=== PATIENT | male | born 1990 | race Caucasian/White ===

== ENCOUNTER 2019-02-08 02:59 | Emergency (ER) | payer OTHER ==
--- NOTE | 2019-02-08 03:19 | Emergency Department Report ---
ED General Adult HPI - General Stated complaint: MEDICAL CLEARANCE Time Seen by Provider: 02/08/19 03:17 - History of Present Illness Initial comments: 28-year-old male with no past medical history presents after being referred from [facility] with the note the patient is ruled out for bacterial meningitis. Patient had told the staff at [facility] that he was recently treated for viral meningitis and didn't bacteria [facility] 3 days ago. Patient states he also was intoxicated at the time of the treatment and does not know the full workup that he received. Patient complains of generalized pain. Patient complains of headache but denies neck stiffness. Patient complains of body aches. Patient denies recent fever. Patient states that he was given a prescription to feel at [facility] but was unable to fill this prescription. - Related Data Allergies Allergy/AdvReac Type Severity Reaction Status Date / Time amoxicillin [From Augmentin] Allergy Unknown Verified 02/08/19 03:19 clavulanic acid Allergy Unknown Verified 02/08/19 03:19 [From Augmentin] ED Review of Systems ROS: Stated complaint: MEDICAL CLEARANCE Other details as noted in HPI Constitutional: denies: chills, fever Eyes: denies: eye pain, eye discharge, vision change ENT: denies: ear pain, throat pain Respiratory: cough Cardiovascular: denies: chest pain, palpitations Endocrine: no symptoms reported Gastrointestinal: denies: abdominal pain, nausea, diarrhea Genitourinary: denies: urgency, dysuria Musculoskeletal: denies: back pain, joint swelling, arthralgia Skin: denies: rash, lesions Neurological: headache, weakness Psychiatric: denies: anxiety, depression Hematological/Lymphatic: denies: easy bleeding, easy bruising ED Physical Exam - General General appearance: alert, in no apparent distress - Head Head exam: Present: atraumatic, normocephalic - Eye Eye exam: Present: normal appearance - ENT ENT exam: Present: mucous membranes moist - Neck Neck exam: Present: normal inspection, full ROM. Absent: meningismus - Respiratory Respiratory exam: Present: normal lung sounds bilaterally. Absent: respiratory distress - Cardiovascular Cardiovascular Exam: Present: regular rate, normal rhythm. Absent: systolic mu rmur, diastolic murmur, rubs, gallop - GI/Abdominal GI/Abdominal exam: Present: soft, normal bowel sounds - Rectal Rectal exam: Present: deferred - Extremities Exam Extremities exam: Present: normal inspection - Back Exam Back exam: Present: normal inspection - Neurological Exam Neurological exam: Present: alert, oriented X3 - Psychiatric Psychiatric exam: Present: normal affect, normal mood - Skin Skin exam: Present: warm, dry, intact, normal color. Absent: rash ED Course Vital Signs 02/08/19 02/08/19 03:19 04:00 Temperature 99.9 F H 99.9 F H Pulse Rate 88 Respiratory 18 Rate Blood Pressure 135/78 [Right] O2 Sat by Pulse 100 Oximetry ED Medical Decision Making - Lab Data Result diagrams: 02/08/19 03:51 - Medical Decision Making Request was sent for the records for Micah Bella at [facility] here in the hospital he states that he was recently evaluated. Patient had no records at this hospital recently the last record that the patient had had at that facility was 2 years ago. Patient has a normal CT and a normal white count. Patient has no meningeal signs. Patient currently sleeping comfortably in no acute distress. Patient was told that to rule out bacterial meningitis would need a lumbar puncture. Patient is oriented to person place and time and refused this study. Patient made aware that this was what he was sent over to rule out. Patient states he did not want this procedure. Patient made aware that he'll be leaving AGAINST MEDICAL ADVICE and the risk of potentially worsening neurologic status and. Patient again has normal lab profile and will be discharged in the custody of [facility]. - Differential Diagnosis Viral illness; Dehdyration; Electrolyte Abnormality; Anemia Critical care attestation.: If time is entered above; I have spent that time in minutes in the direct care of this critically ill patient, excluding procedure time. ED Disposition Clinical Impression: Viral illness Disposition: DC-07 LEFT AGAINST MED ADVICE Is pt being admited?: No Does the pt Need Aspirin: No Condition: Stable Instructions: Viral Syndrome (ED) Time of Disposition: 06:29 Print Language: SAMI
[2019-02-08] MEDS ORDERED: SODIUM CHLORIDE 0.9% 1000 ML 1,000 ML IV ONE (03:23)
--- NOTE | 2019-02-08 04:02 | Cat Scan Report ---
Head CT without intravenous contrast INDICATION: Blunt head trauma today COMPARISON: None FINDINGS: The ventricles are normal in size and position. No hemorrhage or extra-axial fluid collecti on. No edema or mass effect. No focal infarct seen. Portions of the sinuses visualized are clear. No skull fracture identified. IMPRESSION: Negative head CT Automated exposure control was utilized to diminish radiation dose Signer Name: Henrry Calero MD Signed: 02/08/2019 3:58 AM Workstation Name: [id number]
[2019-02-08 05:14] LABS: Hematocrit 44.4 % (35.5-45.6); Mean Corpuscular HGB Conc 34 % (32-34); Mean Corpuscular Volume 90 fl (84-94); Platelet Count 247 K/mm3 (140-440); Red Blood Count 4.93 M/mm3 (3.65-5.03); Red Cell Distribution Width 14.4 % (13.2-15.2)
[2019-02-08 06:16] VITALS: BP 135/78
[2019-02-08 06:27] LABS: Alanine Aminotransferase 18 units/L (7-56); Albumin 4.6 g/dL (3.9-5); BUN/Creatinine Ratio 10; Blood Urea Nitrogen 8 mg/dL (9-20); Calcium 9.8 mg/dL (8.4-10.2); Hemolysis Index 8
--- NOTE | 2019-02-11 13:07 | XRay Report ---
CHEST 1 VIEW INDICATION / CLINICAL INFORMATION: Chest pain. COMPARISON: None available. FINDINGS: SUPPORT DEVICES: None. HEART / MEDIASTINUM: No significant abnormality. LUNGS / PLEURA: No significant pulmonary or pleural abnormality. No pneumothorax. ADDITIONAL FINDINGS: No significant additional findings. IMPRESSION: 1. No significant change Signer Name: Henrry Calero MD Signed: 02/08/2019 4:43 AM Workstation Name: [id number]
== END 2019-02-08 07:15 | disposition left against medical advice (07) ==
LOC: ED 02:59
DX: B34.9 Viral infection, unspecified (principal); Z88.1 Allergy status to other antibiotic agents; Z88.8 Allergy status to other drugs, medicaments and biological substances
CPT/HCPCS: 36415; 70450; 71045; 80053; 82550; 85027